=== PATIENT | female | born 1990 ===

== ENCOUNTER 2024-11-12 11:39 | Emergency (ER) | payer MEDICAID ==
[~2024-11-12] VITALS: Ht 165.1 cm; Wt 84.1 kg
[2024-11-12 11:46] VITALS: BP 121/76; TEMP 97.3
[2024-11-12] MEDS ORDERED: ipratropium/albuterol 3ml nebule NEB ONE (13:30)
[2024-11-12] MEDS: methylPREDNISolone sod succ 125mg/2ml vial IV ONE (13:59)
[2024-11-12] MEDS: albuterol 2.5 MG/3 ML nebule CONTNEB ONE (14:13)
[2024-11-12 14:16] VITALS: PULSE 101; PULSE 95; RESP 18; O2SAT 100; O2SAT 98
[2024-11-12] MEDS ORDERED: ALBU8HFA INH (15:17)
[2024-11-12] MEDS ORDERED: SALM50DI2 INH (15:17)
== END 2024-11-12 15:21 | disposition home or self-care (01) ==
LOC: ER 11:40
DX: J45.909 Unspecified asthma, uncomplicated (principal); Z88.0 Allergy status to penicillin; Z91.030 Bee allergy status; Z88.8 Allergy status to other drugs, medicaments and biological substances
CPT/HCPCS: 71045; 94644; 96374; 99285; J2919; 94760; 99283